=== PATIENT | male | born 1985 | race Caucasian/White ===

== ENCOUNTER 2020-06-28 02:09 | Emergency (ER) | payer SELFPAY ==
[~2020-06-28] VITALS: Ht 187.9 cm; Wt 104.3 kg
[~2020-06-28 02:09] MED LIST: ALBU17AE23; ALBU17AE23 IH; ALPR0.5T3; AZIT-21 PO; CLON1TAB2; CYCL10TA9 PO; KETO-22 PO; PRCD5U PO; SULF1TAB38 PO; TRM50T PO; TRZ100T
--- NOTE | 2020-06-28 02:37 | ED General ---
General Stated Complaint: NAUSEA,WEAK,VOMITING,SHAKING Source of Information: Patient Exam Limitations: No Limitations History of Present Illness Date Seen by Provider: Jun 28, 2020 Time Seen by Provider: 02:37 Initial Comments Patient is a 34-year-old male who presents to the emergency department today with a chief complaint of generalized weakness, nausea vomiting and diarrhea. Symptoms started around 9 PM this evening with abdominal pain. Patient states the majority of his pain is in his right lower quadrant. Patient has never had pain like this before. Patient admits to methamphetamine use IV just prior to the onset of his symptoms. No sick contacts does not recall any "bad food". No problems with urination. Patient denies any blood in his emesis or black or bloody stools. Patient states that he drove here and had pain throughout the entire drive. Patient states that he "passed out" in his truck prior to checking in this evening. Patient denies any recent illnesses, fevers chills cough congestion. He does state his throat is mildly sore. He states that he is vomited at least 5 or 6 times this evening. All other review of systems reviewed and negative except as stated. Timing/Duration: 4-6 Hours Severity: Moderate ("6-7") Associated Systoms: Nausea/Vomiting, Weakness Allergies and Home Medications Allergies Coded Allergies: Acetaminophen (Unverified Allergy, Mild, NAUSEA/VOMITING, 11/30/08) No Known Drug Allergies (Unverified , 11/30/08) Home Medications Cyclobenzaprine Hcl 10 Mg Tablet, 1 EACH PO Q8HR PRN PRN for MUSCLE SPASMS Prescribed by: COLIN CENTENO on 09/15/13 0951 Ketorolac Tromethamine 10 Mg Tablet, 10 MG PO Q8H PRN for PAIN Prescribed by: COLIN CENTENO on 09/15/13 0951 Promethazine/Codeine 5 Ml Syrp, 0 ML PO Q6H PRN 5 TO 10 ML Prescribed by: SYLVIA MINER on 11/30/08 1858 Tramadol Hcl 50 Mg Tab, 50 MG PO Q6H PRN Prescribed by: SYLVIA MINER on 06/23/09 0716 Patient Home Medication List Home Medication List Reviewed: Yes Review of Systems Review of Systems Constitutional: see HPI, malaise, weakness EENTM: throat pain Respiratory: no symptoms reported Cardiovascular: no symptoms reported Gastrointestinal: RLQ, abdominal pain, diarrhea, nausea, vomiting Genitourinary: no symptoms reported Musculoskeletal: no symptoms reported Skin: no symptoms reported Psychiatric/Neurological: Anxiety All Other Systems Reviewed Negative Unless Noted: Yes Past Shnzklt-Ajgvin-Xurswx Hx Past Medical History Asthma Anxiety Physical Exam Vital Signs Vital Signs - First Documented 06/28/20 02:35 Temp 37.6 Pulse 110 Resp 16 B/P (MAP) 104/44 (64) O2 Delivery Room Air Capillary Refill : Height, Weight, BMI Height: 6'2" Weight: 225lbs. oz. 102.898032ya; BMI Method:Stated General Appearance: WD/WN, Anxious, Moderate Distress Eyes: Bilateral Eye Normal Inspection, Bilateral Eye PERRL, Bilateral Eye EOMI HEENT: PERRL/EOMI, Pharynx Normal Neck: Normal Inspection Respiratory: Lungs Clear, Normal Breath Sounds, No Accessory Muscle Use, No Respiratory Distress Cardiovascular: Regular Rate, Rhythm Gastrointestinal: Normal Bowel Sounds, Soft, Tenderness (mild right lower quadrant tenderness with slight rebound) Extremity: Normal Capillary Refill, Normal Inspection, Normal Range of Motion, Non Tender Neurologic/Psychiatric: Alert, Oriented x3, No Motor/Sensory Deficits, Normal Mood/Affect Skin: Normal Color, Warm/Dry Progress/Results/Core Measures Suspected Sepsis SIRS Temperature: Pulse: Respiratory Rate: Laboratory Tests 06/28/20 02:58: White Blood Count 7.2 Blood Pressure / Mean: Laboratory Tests 06/28/20 02:58: Creatinine 1.21, Platelet Count 250, Total Bilirubin 2.0H Results/Orders Lab Results Laboratory Tests Test 06/28/20 02:58 06/28/20 03:45 Range/Units White Blood Count 7.2 4.3-11.0 10^3/uL Red Blood Count 4.87 4.30-5.52 10^6/uL Hemoglobin 15.3 13.3-17.7 g/dL Hematocrit 46 40-54 % Mean Corpuscular Volume 95 80-99 fL Mean Corpuscular Hemoglobin 31 25-34 pg Mean Corpuscular Hemoglobin Concent 33 32-36 g/dL Red Cell Distribution Width 13.4 10.0-14.5 % Platelet Count 250 130-400 10^3/uL Mean Platelet Volume 9.5 9.0-12.2 fL Immature Granulocyte % (Auto) 1 % Neutrophils (%) (Auto) 96 H 42-75 % Lymphocytes (%) (Auto) 3 L 12-44 % Monocytes (%) (Auto) 0 0-12 % Eosinophils (%) (Auto) 0 0-10 % Basophils (%) (Auto) 0 0-10 % Neutrophils # (Auto) 6.9 1.8-7.8 10^3/uL Lymphocytes # (Auto) 0.2 L 1.0-4.0 10^3/uL Monocytes # (Auto) 0.0 0.0-1.0 10^3/uL Eosinophils # (Auto) 0.0 0.0-0.3 10^3/uL Basophils # (Auto) 0.0 0.0-0.1 10^3/uL Immature Granulocyte # (Auto) 0.0 0.0-0.1 10^3/uL Neutrophils % (Manual) 67 % Lymphocytes % (Manual) 5 % Monocytes % (Manual) 1 % Metamyelocytes % 1 % Band Neutrophils 26 % Toxic Granulation 2+ Blood Morphology Comment NORMAL Sodium Level 138 135-145 MMOL/L Potassium Level 3.0 L 3.6-5.0 MMOL/L Chloride Level 103 98-107 MMOL/L Carbon Dioxide Level 20 L 21-32 MMOL/L Anion Gap 15 H 5-14 MMOL/L Blood Urea Nitrogen 11 7-18 MG/DL Creatinine 1.21 0.60-1.30 MG/DL Estimat Glomerular Filtration Rate > 60 BUN/Creatinine Ratio 9 Glucose Level 176 H 70-105 MG/DL Calcium Level 8.5 8.5-10.1 MG/DL Corrected Calcium 8.8 8.5-10.1 MG/DL Total Bilirubin 2.0 H 0.1-1.0 MG/DL Aspartate Amino Transf (AST/SGOT) 211 H 5-34 U/L Alanine Aminotransferase (ALT/SGPT) 104 H 0-55 U/L Alkaline Phosphatase 137 H 40-136 U/L Total Protein 6.5 6.4-8.2 GM/DL Albumin 3.6 3.2-4.5 GM/DL Lipase 30 8-78 U/L My Orders Orders - LYNDA WORRELL MD Ed Iv/Invasive Line Start (06/28/20 02:45) Cbc With Automated Diff (06/28/20 02:45) Comprehensive Metabolic Panel (06/28/20 02:45) Lipase (3/4/21 02:45) Ns Iv 1000 Ml (Sodium Chloride 0.9%) (06/28/20 02:45) Ondansetron Injection (Zofran Injectio (06/28/20 02:45) Ketorolac Injection (Toradol Injection) (06/28/20 02:45) Manual Differential (06/28/20 02:58) Hepatitis Panel Acute (06/28/20 03:39) Fentanyl Injection (Sublimaze Injection (06/28/20 04:00) Ct Abdomen/Pelvis W (06/28/20 03:53) Iohexol Injection (Omnipaque 350 Mg/Ml 1 (06/28/20 04:45) Received Contrast (Hold Metformin- Contr (06/28/20 04:45) Sodium Chloride Flush (Catheter Flush Sy (06/28/20 04:45) Ns (Ivpb) (Sodium Chloride 0.9% Ivpb Bag (06/28/20 04:45) Medications Given in ED Current Medications Medications Dose Ordered Sig/Randee Route Start Time Stop Time Status Last Admin Dose Admin Iohexol 100 ml ONCE ONCE IV 06/28/20 04:45 06/28/20 04:46 DC 06/28/20 04:42 100 ML Ketorolac Tromethamine 15 mg ONCE ONCE IVP 06/28/20 02:45 06/28/20 02:48 DC 06/28/20 02:59 15 MG Ondansetron HCl 8 mg ONCE ONCE IVP 06/28/20 02:45 06/28/20 02:48 DC 06/28/20 02:58 8 MG Sodium Chloride 10 ml NEEDED PRN IV 06/28/20 04:45 06/28/20 04:43 10 ML Sodium Chloride 100 ml ONCE ONCE IV 06/28/20 04:45 06/28/20 04:46 DC 06/28/20 04:43 80 ML Vital Signs/I&O 06/28/20 02:35 Temp 37.6 Pulse 110 Resp 16 B/P (MAP) 104/44 (64) O2 Delivery Room Air Capillary Refill : Progress Note : Time: 05:45 Progress Note Patient seen and evaluated, CBC, Chem-12 lipase shows normal CBC with mildly elevated liver functions. Patient relates that he has a history of hepatitis C. CT scan shows findings suggestive of infectious versus inflammatory enterocolitis/diarrheal disease according to stat rad. Mild pericholecystic fluid suggestive. On physical examination the patient does have very minimal right upper quadrant tenderness. Equivocal rebound. Voluntary guarding but otherwise benign exam. Patient is treated in the emergency department with normal saline and Zofran. He has no episodes of vomiting here in the emergency department. Patient will be sent home with a prescription for Zofran. He will be recommended to follow a bland diet for the next 24 hours. He is also recommended to stop using methamphetamines. He verbalizes understanding of these discharge instructions. All questions are sought and answered. Patient is stable for discharge. Departure Impression Primary Impression: Abdominal pain Qualified Codes: R10.30 - Lower abdominal pain, unspecified Disposition: HOME, SELF-CARE Condition: Stable Departure-Patient Inst. Decision time for Depature: 05:47 Referrals: [facility]/JENN RUELAS,LOCAL PHYSICIAN (PCP) Primary Care Physician Patient Instructions: Abdominal Pain, Adult ED, [id number] Add. Discharge Instructions: Follow a clear liquid diet for the next 12 hours. Then a bland diet and then advance your diet as tolerated throughout the day. Use the Zofran as needed for nausea. You can take this medication every 8 hours. I have sent a prescription to your pharmacy for this. Come back to the emergency room for any worsening abdominal pain especially with persistent vomiting/inability to hold down fluids. Follow-up with [facility] clinic as needed. Scripts Ondansetron (Ondansetron Odt) 4 Mg Tab.rapdis 4 MG PO Q8H PRN for nausea, #20 TAB Prov: LYNDA WORRELL MD 06/28/20 LYNDA WORRELL MD Jun 28, 2020 02:37
[2020-06-28] MEDS ORDERED: ONDANSETRON 4 MG/2 ML (SDV) Z0FRAN IVP ONE (02:45)
[2020-06-28] MEDS ORDERED: KETOROLAC 30 MG/ML VIAL IVP ONE (02:45)
[2020-06-28] MEDS ORDERED: NS IV 1000 ML 1,000 ML IV SCH (02:45)
[2020-06-28 03:06] LABS: BASOPHILS % (AUTO) 0 % (0-10); EOSINOPHILS % (AUTO) 0 % (0-10); HEMATOCRIT 46 % (40-54); HEMOGLOBIN 15.3 g/dL (13.3-17.7); LYMPHOCYTES # (AUTO) 0.2 10^3/uL (1.0-4.0); LYMPHOCYTES % (AUTO) 3 % (12-44); MEAN CORPUSCULAR HEMOGLOBIN 31 pg (25-34); MEAN CORPUSCULAR HGB CONC 33 g/dL (32-36); MEAN CORPUSCULAR VOLUME 95 fL (80-99); MEAN PLATELET VOLUME 9.5 fL (9.0-12.2); MONOCYTES % (AUTO) 0 % (0-12); NEUTROPHILS # (AUTO) 6.9 10^3/uL (1.8-7.8); NEUTROPHILS % (AUTO) 96 % (42-75); PLATELET COUNT 250 10^3/uL (130-400); WHITE BLOOD COUNT 7.2 10^3/uL (4.3-11.0)
[2020-06-28 03:16] LABS: ALBUMIN 3.6 GM/DL (3.2-4.5); CHLORIDE 103 MMOL/L (98-107); SODIUM 138 MMOL/L (135-145)
[2020-06-28 03:17] LABS: CALCIUM 8.5 MG/DL (8.5-10.1)
[2020-06-28 03:18] LABS: GLUCOSE 176 MG/DL (70-105)
[2020-06-28 03:19] LABS: TOTAL PROTEIN 6.5 GM/DL (6.4-8.2)
[2020-06-28 03:20] LABS: CARBON DIOXIDE 20 MMOL/L (21-32)
[2020-06-28 03:22] LABS: ALKALINE PHOSPHATASE 137 U/L (40-136); CREATININE SERUM 1.21 MG/DL (0.60-1.30); GFR ESTIMATED > 60
[2020-06-28 03:23] LABS: BUN/CREATININE RATIO 9
[2020-06-28 03:25] LABS: ALANINE AMINOTRANSFERASE 104 U/L (0-55); LIPASE 30 U/L (8-78)
[2020-06-28 03:26] LABS: BAND NEUTROPHILS 26 %; LYMPHOCYTES % (MANUAL) 5 %; METAMYELOCYTES % 1 %; MONOCYTES % (MANUAL) 1 %; NEUTROPHILS % (MANUAL) 67 %; RBC MORPH NORMAL
[2020-06-28 03:27] LABS: TOXIC GRANULATION/VACUOLAZATIO 2+
[2020-06-28] MEDS ORDERED: fentaNYL INJECTION 100 MCG/2 ML AMP IVP ONE (04:00)
[2020-06-28] MEDS ORDERED: CATHETER FLUSH 10 ML SYR IV PRN (04:45)
[2020-06-28] MEDS ORDERED: NS 100 ML (IVPB) BAG IV ONE (04:45)
[2020-06-28] MEDS ORDERED: IOHEXOL 350 MG/ML 100 ML (OMNIPAQUE 350) VIAL IV ONE (04:45)
[2020-06-28] MEDS ORDERED: HOLD METFORMIN - RECEIVED CONTRAST 20 ML VIAL IV SCH (04:45)
--- NOTE | 2020-06-28 05:39 | Diagnostic Imaging Report ---
PROCEDURE: CT abdomen and pelvis with contrast. TECHNIQUE: Multiple contiguous axial images were obtained through the abdomen and pelvis after administration of intravenous contrast. Auto Exposure Controls were utilized during the CT exam to meet ALARA standards for radiation dose reduction. All CT scans use one or more of the following dose optimizing techniques: automated exposure control, MA and/or KvP adjustment based on patient size and exam type or iterative reconstruction. INDICATION: Abdominal pain with nausea, vomiting and diarrhea. FINDINGS: Lung bases are clear. Liver appears normal. Gallbladder is unremarkable. Pancreas appears normal. Spleen is not enlarged. Adrenals appear normal. Kidneys appear normal. There is moderate amount of residue in the stomach. There is some thickening of the wall of the small intestine most notably in the jejunum. Appendix is unremarkable. There appears to be some thickening of the wall of the sigmoid colon. Urinary bladder appears normal. IMPRESSION: Inflammatory changes of the jejunum and sigmoid colon. Differential considerations include inflammatory or infectious enterocolitis. I agree with preliminary interpretation. Dictated by: Dictated on workstation # [id number]
[2020-06-28] MEDS ORDERED: ONDA4TAB11 PO (05:49)
[2020-06-28 06:03] VITALS: BP 103/60
[2020-06-28 22:10] LABS: HEPATITIS C ANTIBODY C Reactive (Non-Reactive)
== END 2020-06-28 06:03 | disposition home or self-care (01) ==
LOC: EDUNIT# 02:09 → ER 02:14
DX: R10.31 Right lower quadrant pain (principal); F41.9 Anxiety disorder, unspecified; Z88.6 Allergy status to analgesic agent
CPT/HCPCS: 36415; 74177; 80053; 80074; 83690; 85007; 85027

== ENCOUNTER 2021-04-30 14:24 | Emergency (ER) | payer OTHER ==
[~2021-04-30] VITALS: Ht 188 cm; Wt 104.3 kg
[~2021-04-30 14:24] MED LIST changes: +ONDA4TAB11 PO
--- OUTSIDE RECORDS SUMMARY | 2021-04-30 14:31 | XMS REPORT | Clinical Summary ---
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 Initiated therapy 05/26/14. Community corrections with adi [place] with [facility] Incarcerated and methadone stopped on . Pt relapsed and behind on payments for Sober Living. Not comp liant with taking mood medication. Hepatitis C infection 01/20/2014 Overview: Formatting of this note might be differ ent from the original. [facility] record s confirm Hep C: Hep C genotype Type 3A, quant [id number] - tests 05/11/2013 . LISBETH (generalized anxiety disorder) 01/20/2014 Overview: Formatting of this note might be differ ent from the original. Pt has been prescribed antidepressants but has not ever filled them. History of heroin/opiate addictin/use 01/11/2014 Overview: Formatting of this note might be differ ent from the original. Last use Summer 2013. Currently in [facility]/ sober living side with OP therapy (vlad loya), and community co rrections services - - Ian Velez [place] [phone]. Not o n Community corrections alexandra as of 12/2013 - self pay. Relapse while on treatment May 2014 (me thAmp). Relapse while on treatment 07/2014 (methAmp). 08/28/14: per chemo Chu OP. Relapse d on methamphetamine. Still resides in sober living. 11/25/14: Pt now incarcerated on violati on of probation and will be facing fci. Will stop methadone. Supporti ve treatment for withdrawal symptoms via group home nurse. Opiate addiction 01/05/2014 Overview: Formatting of this note might be differ ent from the original. 2013 Tobacco use 01/05/2014 Resolved Problems Problem Noted Date Resolved Date Encounter for monitoring Suboxone maintenance therapy 04/201306/02/2014 Overview: Formatting of this note might be differ ent from the original. suboxone induction started 01/25/14. OP therapy with vlad loya at [facility]. Community corrections ser vices with [facility] [phone]. Not on Community corrections alexandra as of 12/2013 - self pay. 05/26/14. suboxone is not affordable. Switched to methadone. Immunizations Name Administration Dates Next Due DTP ([employer] registry) 12/13/1992, 06/04/1989, , 09/25/1988 MMR 12/13/1992, 08/06/1989 OPV ([employer] registry) 12/13/1992, 06/04/1989, , 09/25/1988 Family History Medical History Relation Name Comments No Known Problems Father No Known Problems Mother Relation Name Status Comments Father Other Mother suicide (Age 39) Social History Date Tobacco Use Types Packs/Day Years Used Current Every Day Smoker Cigarettes Smokeless Tobacco: Never Used Tobacco Cessation: Ready to Quit: No; Co unseling Given: No Comments Alcohol Use Standard Drinks/Week No 0 (1 standard drink = 0.6 o z pure alcohol) Sex Assigned at Date Recorded Not on file Last Filed Vital Signs Reading Time Taken Comments Vital Sign 136/70 11/08/2014 10:12 AM CDT Blood Pressure 72 11/08/2014 10:12 AM CDT Pulse 36.7 C (98 F) 01/11/2014 10:27 AM CDT Temperature 12 11/08/2014 10:12 AM CDT Respiratory Rate - - Oxygen Saturation - - Inhaled Oxygen Concentration 98.3 kg (216 lb 11.2 oz) 11/08/2014 10:12 AM CDT Weight 190.5 cm (6' 3") 11/08/2014 10:12 AM CDT Height 27.09 11/08/2014 10:12 AM CDT Body Mass Index Plan of Treatment Health Maintenance Due Date Last Done Comments COVID-19 Vaccine (1) 08/20/1992 Varicella Vaccines (1 of 01/10/1993 2 - 2-dose childhood series) DTaP,Tdap,and Td Vaccines 08/20/1998 12/13/1992, (5 - Tdap) 06/04/1989, 12/13/1988, Additional history exists Hepatitis C Screening 08/20/2005 Influenza Vaccine (#1) 2020 Pneumo-Vaccine: 65+Yrs (1 08/20/2052 of 1 - PPSV23) IPV Vaccines Completed 12/13/1992, 06/04/1989, 12/11/1988, Additional history exists MMR Vaccines-Adult Completed 12/13/1992, 08/06/1989 HIB Vaccines Aged Out No longer eligible based on patient's age to complete this topic Meningococcal Vaccine Aged Out No longer eligib le based on patient's age to complete this topic Pneumo-Vaccine: Peds (0-5 Aged Out No longer el igible based on patient's age to Yrs) & At-Risk Patients complete this topic (6-64 Yrs) Rotavirus Vaccines Aged Out No longer eligible based on patient's age to complete this topic Results Not on filefrom Last 3 Months Insurance Type Payer Benefit Subscriber ID Effective Phone Address Plan / Dates Group COMMERCIAL INSURANCE COMMERCIAL xxxxxNSKS 2014- Attn GENERIC INSURANCE Present Pool [employer] [address] [place] [id number] Advance Directives For more information, please contact: [phone] Patient Inseamer Explanation Type Date Recorded Advance Directives and Living Will Power of Outpatient Therapist
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
[2021-04-30] MEDS ORDERED: HOLD METFORMIN - RECEIVED CONTRAST 20 ML VIAL IV SCH (15:00)
[2021-04-30] MEDS ORDERED: CATHETER FLUSH 10 ML SYR IV PRN (15:00)
[2021-04-30] MEDS ORDERED: IOHEXOL 350 MG/ML 100 ML (OMNIPAQUE 350) VIAL IV ONE (15:00)
[2021-04-30] MEDS ORDERED: NS 100 ML (IVPB) BAG IV ONE (15:00)
[2021-04-30 15:09] LABS: MEAN CORPUSCULAR HGB CONC 35 g/dL (32-36); MEAN CORPUSCULAR VOLUME 90 fL (80-99)
[2021-04-30 15:11] LABS: BASOPHILS # (AUTO) 0.1 10^3/uL (0.0-0.1); BASOPHILS % (AUTO) 0 % (0-10); EOSINOPHILS # (AUTO) 0.1 10^3/uL (0.0-0.3); EOSINOPHILS % (AUTO) 0 % (0-10); HEMATOCRIT 52 % (40-54); HEMOGLOBIN 18.2 g/dL (13.3-17.7); LYMPHOCYTES # (AUTO) 1.3 10^3/uL (1.0-4.0); LYMPHOCYTES % (AUTO) 7 % (12-44); MEAN CORPUSCULAR HEMOGLOBIN 32 pg (25-34); MEAN PLATELET VOLUME 10.3 fL (9.0-12.2); MONOCYTES # (AUTO) 1.1 10^3/uL (0.0-1.0); MONOCYTES % (AUTO) 6 % (0-12); NEUTROPHILS # (AUTO) 17.6 10^3/uL (1.8-7.8); NEUTROPHILS % (AUTO) 87 % (42-75); PLATELET COUNT 270 10^3/uL (130-400); WHITE BLOOD COUNT 20.2 10^3/uL (4.3-11.0)
[2021-04-30 15:27] LABS: ALBUMIN 4.3 GM/DL (3.2-4.5); POTASSIUM 3.8 MMOL/L (3.6-5.0)
[2021-04-30 15:28] LABS: CALCIUM 9.4 MG/DL (8.5-10.1)
[2021-04-30 15:30] LABS: TOTAL PROTEIN 8.3 GM/DL (6.4-8.2)
[2021-04-30 15:31] LABS: BILIRUBIN,TOTAL 0.7 MG/DL (0.1-1.0)
[2021-04-30 15:33] LABS: CREATININE SERUM 0.96 MG/DL (0.60-1.30)
[2021-04-30] MEDS ORDERED: LACTATED RINGERS 1,000 ML IV SCH (15:45)
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
[2021-04-30 16:12] LABS: BAND NEUTROPHILS 1 %; LYMPHOCYTES % (MANUAL) 7 %; MONOCYTES % (MANUAL) 7 %; NEUTROPHILS % (MANUAL) 85 %; RBC MORPH NORMAL
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
[2021-04-30] MEDS ORDERED: CEPH500T PO ×3 (16:30→16:33)
[2021-04-30 16:45] VITALS: BP 137/86
== END 2021-04-30 16:45 | disposition home or self-care (01) ==
LOC: EDUNIT# 14:24 → ER 14:27
DX: S00.432A Contusion of left ear, initial encounter (principal); S60.221A Contusion of right hand, initial encounter; J45.909 Unspecified asthma, uncomplicated; F41.9 Anxiety disorder, unspecified; Z79.899 Other long term (current) drug therapy; Y04.8XXA Assault by other bodily force, initial encounter
CPT/HCPCS: 36415; 70450; 70486; 71260; 72125; 73130; 74177; 80053; 85007; 85027

== ENCOUNTER 2022-08-27 19:45 | Emergency (ER) | payer SELFPAY ==
[~2022-08-27] VITALS: Ht 188 cm; Wt 113.3 kg
[~2022-08-27 19:45] MED LIST changes: +CEPH500T PO
[2022-08-27 19:59] VITALS: BP 130/96
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
== END 2022-08-27 21:03 | disposition home or self-care (01) ==
LOC: EDUNIT# 19:45 → ER 19:49
DX: R20.2 Paresthesia of skin (principal); Z28.310 Unvaccinated for COVID-19
CPT/HCPCS: 99282

== ENCOUNTER 2023-02-02 07:41 | Emergency (ER) | payer SELFPAY ==
[2023-02-02] MEDS ORDERED: NS IV 1000 ML 1,000 ML IV SCH (08:00)
[2023-02-02] MEDS ORDERED: ONDANSETRON INJECTION 4 MG/2 ML (SDV) IVP ONE (08:00)
--- NOTE | 2023-02-02 08:02 | ED Abdominal Pain ---
General Chief Complaint: Abdominal/GI Problems Stated Complaint: ABD PAIN Nursing Triage Note: .PT ARRIVED PER EMS, PT CO FROM HOME W CO OF SEVERE ABD PAIN STARTING THIS AM AT APPROX 0530 THIS AM. PT STATES ABD PAIN AND BACK PAIN MORE ON R SIDE. PT UNABLE TO LAY STILL SQUIRMING IN BED TO GET COMFORTABLE. PT CO OF NAUSEA Source of Information: Patient (DEBRASHRUTHI) History of Present Illness Date Seen by Provider: Feb 02, 2023 Time Seen by Provider: 07:50 Initial Comments Patient presents with abdominal pain since this morning. He says that he has not been feeling good for a little while but it got much worse this morning. He states that pain is in his epigastric area and is radiating to his back currently. He denies any ememis or diarrhea. States that he has had nausea with it. He had GI issues last year that he presented to the ED with. Timing/Duration: 1-3 Hours Severity/Quality: Mild Location: Epigastric Radiation: Back Activities at Onset: Rest Associated Symptoms: Back Pain; No Diaphoresis; Nausea/Vomiting; No Shortness of Air (SHRUTHI RICHARDSON) Allergies and Home Medications Allergies Coded Allergies: No Known Drug Allergies (Unverified , 11/30/08) Patient Home Medication List Home Medication List Reviewed: Yes (SHRUTHI RICHARDSON) No Active Prescriptions or Reported Meds Review of Systems Review of Systems Constitutional: no symptoms reported, see HPI EENTM: No Symptoms Reported Respiratory: No Symptoms Reported; Denies Cough, Denies Shortness of Air Cardiovascular: Denies Chest Pain Gastrointestinal: Abdomen Distended, Abdominal Pain; Denies Diarrhea; Nausea; Denies Rectal Bleeding, Denies Vomiting (SHRUTHI RICHARDSON) All Other Systems Reviewed Negative Unless Noted: Yes (SHRUTHI RICHARDSON) Past Vmmvzxs-Xjeygk-Tdsivy Hx Immunizations Up To Date First/Initial COVID19 Vaccinat: NA (SHRUTHI RICHARDSON) Past Medical History Surgery/Hospitalization HX: DENIES Surgeries: Yes (elbow) Orthopedic Respiratory: Yes Asthma Cardiac: No Neurological: No Gastrointestinal: No Psychosocial: Yes Anxiety Integumentary: No Blood Disorders: Yes (Hep C) (SHRUTHI RICHARDSON) Physical Exam Vital Signs Vital Signs - First Documented 02/02/23 07:43 Pulse 59 Resp 18 B/P (MAP) 143/107 (119) Pulse Ox 99 (DETAR,CYNDY W DO) Vital Signs Capillary Refill : (SHRUTHI RICHARDSON) Height/Weight/BMI Height: 6'2" Weight: 225lbs. oz. 102.016904tt; 32.00 BMI Method:Stated General Appearance: WD/WN, no apparent distress Neck: supple Respiratory: lungs clear, normal breath sounds, no respiratory distress, no accessory muscle use Cardiovascular: regular rate, rhythm, no gallop, no murmur Gastrointestinal: soft, tenderness (epigastric) Back: no CVA tenderness Neurologic/Psychiatric: alert, normal mood/affect, oriented x 3 (SHRUTHI RICHARDSON) Progress/Results/Core Measures Results/Orders Lab Results Laboratory Tests Test 02/02/23 07:54 02/02/23 07:59 Range/Units White Blood Count 11.1 H 4.3-11.0 10^3/uL Red Blood Count 5.30 4.30-5.52 10^6/uL Hemoglobin 17.0 13.3-17.7 g/dL Hematocrit 49 40-54 % Mean Corpuscular Volume 92 80-99 fL Mean Corpuscular Hemoglobin 32 25-34 pg Mean Corpuscular Hemoglobin Concent 35 32-36 g/dL Red Cell Distribution Width 12.4 10.0-14.5 % Platelet Count 266 130-400 10^3/uL Mean Platelet Volume 9.2 9.0-12.2 fL Immature Granulocyte % (Auto) 0 % Neutrophils (%) (Auto) 81 H 42-75 % Lymphocytes (%) (Auto) 13 12-44 % Monocytes (%) (Auto) 5 0-12 % Eosinophils (%) (Auto) 1 0-10 % Basophils (%) (Auto) 0 0-10 % Neutrophils # (Auto) 9.1 H 1.8-7.8 10^3/uL Lymphocytes # (Auto) 1.4 1.0-4.0 10^3/uL Monocytes # (Auto) 0.5 0.0-1.0 10^3/uL Eosinophils # (Auto) 0.1 0.0-0.3 10^3/uL Basophils # (Auto) 0.0 0.0-0.1 10^3/uL Immature Granulocyte # (Auto) 0.0 0.0-0.1 10^3/uL Sodium Level 140 135-145 MMOL/L Potassium Level 3.2 L 3.6-5.0 MMOL/L Chloride Level 105 98-107 MMOL/L Carbon Dioxide Level 22 21-32 MMOL/L Anion Gap 13 5-14 MMOL/L Blood Urea Nitrogen 7 7-18 MG/DL Creatinine 0.81 0.60-1.30 MG/DL Estimat Glomerular Filtration Rate 118 BUN/Creatinine Ratio 9 Glucose Level 129 H 70-105 MG/DL Calcium Level 9.1 8.5-10.1 MG/DL Corrected Calcium 8.9 8.5-10.1 MG/DL Total Bilirubin 0.7 0.1-1.0 MG/DL Aspartate Amino Transf (AST/SGOT) 21 5-34 U/L Alanine Aminotransferase (ALT/SGPT) 28 0-55 U/L Alkaline Phosphatase 73 40-136 U/L Total Protein 7.6 6.4-8.2 GM/DL Albumin 4.3 3.2-4.5 GM/DL Lipase 59 8-78 U/L Serum Alcohol < 10 <10 MG/DL Urine Color YELLOW Urine Clarity CLEAR Urine pH 5.5 5-9 Urine Specific [place] >=1.030 1.016-1.022 Urine Protein 1+ H NEGATIVE Urine Glucose (UA) NEGATIVE NEGATIVE Urine Ketones 3+ H NEGATIVE Urine Nitrite NEGATIVE NEGATIVE Urine Bilirubin 1+ H NEGATIVE Urine Urobilinogen 0.2 < = 1.0 MG/DL Urine Leukocyte Esterase NEGATIVE NEGATIVE Urine RBC (Auto) 1+ H NEGATIVE Urine RBC 2-5 H /HPF Urine WBC 0-2 /HPF Urine Squamous Epithelial Cells NONE /HPF Urine Crystals NONE /LPF Urine Bacteria TRACE /HPF Urine Casts NONE /LPF Urine Mucus SMALL H /LPF Urine Other MOD SPERM H /HPF Urine Culture Indicated YES Urine Opiates Screen NEGATIVE NEGATIVE Urine Oxycodone Screen NEGATIVE NEGATIVE Urine Methadone Screen NEGATIVE NEGATIVE Urine Propoxyphene Screen NEGATIVE NEGATIVE Urine Barbiturates Screen NEGATIVE NEGATIVE Ur Tricyclic Antidepressants Screen NEGATIVE NEGATIVE Urine Phencyclidine Screen NEGATIVE NEGATIVE Urine Amphetamines Screen NEGATIVE NEGATIVE Urine Methamphetamines Screen NEGATIVE NEGATIVE Urine Benzodiazepines Screen NEGATIVE NEGATIVE Urine Cocaine Screen NEGATIVE NEGATIVE Urine Cannabinoids Screen POSITIVE H NEGATIVE (DETAR,CYNDY W DO) My Orders Orders - DETAR,CYNDY W DO Comprehensive Metabolic Panel (02/02/23 07:56) Lipase (02/02/23 07:56) Ua Culture If Indicated (02/02/23 07:56) Cbc And Automated Diff (02/02/23 07:56) Ct Abdomen/Pelvis W (02/02/23 07:56) Ns Iv 1000 Ml (Ns Iv 1000 Ml) (02/02/23 08:00) Ondansetron Injection (Ondansetron Inj (02/02/23 08:00) Urine Culture (02/02/23 07:59) Iohexol Injection (Omnipaque 350 Mg/Ml 1 (02/02/23 08:45) Received Contrast (Hold Metformin- Contr (02/02/23 08:45) Ns (Ivpb) 100 Ml (Sodium Chloride 0.9% 1 (02/02/23 08:45) Alcohol (02/02/23 09:01) Drug Screen Stat (Urine) (02/02/23 09:03) Pantoprazole Injection (Pantoprazole Inj (02/02/23 09:15) Antacid Suspension (Antacid Suspension (02/02/23 09:15) (CYNDY MORALES DO) Medications Given in ED Current Medications Medications Dose Ordered Sig/Randee Route Start Time Stop Time Status Last Admin Dose Admin Iohexol 100 ml ONCE ONCE IV 02/02/23 08:45 02/02/23 08:46 DC 02/02/23 09:21 100 ML Ondansetron HCl 4 mg ONCE ONCE IVP 02/02/23 08:00 02/02/23 08:01 DC 02/02/23 08:14 4 MG Sodium Chloride 100 ml ONCE ONCE IV 02/02/23 08:45 02/02/23 08:46 DC 02/02/23 09:21 80 ML (CYNDY MORALES DO) Vital Signs/I&O 02/02/23 07:43 Pulse 59 Resp 18 B/P (MAP) 143/107 (119) Pulse Ox 99 (CYNDY MORALES DO) Blood Pressure Mean: 119 Progress Progress Note : Time: 07:50 Progress Note 7:50 - patients pains started at 5:30 this morning with epigastric pain that radiates to his back. He occasionally smoke marijuana and consumes alcohol. He says that he is currently not homeless but is not living in a great situation. He states that he is having some nausea but denies fevers, emesis, diarrhea, hematochezia. His blood pressure is currently 143/107. Plan is to abdominal CT abdomen, CBC, CMP, Lipase, and UA. 8:25 - patients grandfather has presented to the ED. On arrival his grandfather believes that his consumption of alcohol is different than what the patient had described earlier in the visit. 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 (SHRUTHI RICHARDSON) Progress Note : Progress Note 0958 Labs reviewed. Urine indicates some dehydration, drug test positive for marijuana. Alcohol less than 10. Suspect alcoholic gastritis. Protonix and Maalox given in the department. We will treat him with PPI outpatient as well. Will provide nausea medication. Follow-up with primary care for chronic recurrent problems. He does have support from his grandparent who does residential him despite patient's inability to adequately care for himself and make good decisions with lifestyle choices. Patient sleeping in the bed he does not entirely pleased with going home without pain medication, will provide Protonix and sucralfate for symptom control follow-up with primary care (CYNDY MORALES DO) Departure Impression Primary Impression: Abdominal pain Qualified Codes: R10.13 - Epigastric pain Disposition: HOME, SELF-CARE Condition: Stable Departure-Patient Inst. Referrals: NO,LOCAL PHYSICIAN (PCP/Family) Primary Care Physician Patient Instructions: Gastritis (DC) Scripts Sucralfate (Sucralfate) 1 Gram Tablet 1 GM PO ACHS for Abdominal Pain for 14 Days, #56 TAB 1 Refill Chew tablet to a slurry and then swallow Prov: CYNDY MORALES DO 02/02/23 Ondansetron (Ondansetron Odt) 4 Mg Tab.rapdis 4 MG PO Q6H PRN for NAUSEA/VOMITING, #8 TAB 0 Refills Prov: CYNDY MORALES DO 02/02/23 SHRUTHI RICHARDSON Feb 02, 2023 08:02 CYNDY MORALES DO Feb 02, 2023 09:38
[2023-02-02 08:05] LABS: BASOPHILS % (AUTO) 0 % (0-10); EOSINOPHILS # (AUTO) 0.1 10^3/uL (0.0-0.3); EOSINOPHILS % (AUTO) 1 % (0-10); HEMATOCRIT 49 % (40-54); LYMPHOCYTES # (AUTO) 1.4 10^3/uL (1.0-4.0); LYMPHOCYTES % (AUTO) 13 % (12-44); MEAN CORPUSCULAR HEMOGLOBIN 32 pg (25-34); MEAN CORPUSCULAR HGB CONC 35 g/dL (32-36); MEAN CORPUSCULAR VOLUME 92 fL (80-99); MEAN PLATELET VOLUME 9.2 fL (9.0-12.2); MONOCYTES # (AUTO) 0.5 10^3/uL (0.0-1.0); MONOCYTES % (AUTO) 5 % (0-12); NEUTROPHILS # (AUTO) 9.1 10^3/uL (1.8-7.8); NEUTROPHILS % (AUTO) 81 % (42-75); PLATELET COUNT 266 10^3/uL (130-400); WHITE BLOOD COUNT 11.1 10^3/uL (4.3-11.0)
[2023-02-02 08:13] LABS: ALBUMIN 4.3 GM/DL (3.2-4.5)
[2023-02-02 08:14] LABS: POTASSIUM 3.2 MMOL/L (3.6-5.0)
[2023-02-02 08:15] LABS: CALCIUM 9.1 MG/DL (8.5-10.1)
[2023-02-02 08:16] LABS: TOTAL PROTEIN 7.6 GM/DL (6.4-8.2)
[2023-02-02 08:18] LABS: BILIRUBIN,TOTAL 0.7 MG/DL (0.1-1.0)
[2023-02-02 08:20] LABS: CREATININE SERUM 0.81 MG/DL (0.60-1.30)
[2023-02-02 08:21] LABS: CLARITY,URINE CLEAR; COLOR,URINE YELLOW
[2023-02-02 08:22] LABS: BILIRUBIN,URINE 1+ (NEGATIVE); GLUCOSE, URINE (UA) NEGATIVE (NEGATIVE); KETONES,URINE 3+ (NEGATIVE); LEUKOCYTE ESTERASE ,URINE NEGATIVE (NEGATIVE); NITRITE,URINE NEGATIVE (NEGATIVE); PH,URINE 5.5 (5-9); PROTEIN,URINE 1+ (NEGATIVE)
[2023-02-02 08:23] LABS: BACTERIA,URINE TRACE /HPF; WBC,URINE 0-2 /HPF
[2023-02-02 08:25] LABS: URINE OTHER MOD SPERM /HPF
[2023-02-02] MEDS ORDERED: IOHEXOL 350 MG/ML 100 ML (OMNIPAQUE 350) VIAL IV ONE (08:45)
[2023-02-02] MEDS ORDERED: NS 100 ML (IVPB) BAG IV ONE (08:45)
[2023-02-02] MEDS ORDERED: HOLD METFORMIN - RECEIVED CONTRAST 20 ML VIAL IV SCH (08:45)
--- NOTE | 2023-02-02 09:07 | Diagnostic Imaging Report ---
PROCEDURE: CT abdomen and pelvis with contrast. TECHNIQUE: Multiple contiguous axial images were obtained through the abdomen and pelvis after administration of intravenous contrast. Auto Exposure Controls were utilized during the CT exam to meet ALARA standards for radiation dose reduction. All CT scans use one or more of the following dose optimizing techniques: automated exposure control, MA and/or KvP adjustment based on patient size and exam type or iterative reconstruction. INDICATION: Abdominal pain, severe, which radiates into the back with nausea and emesis. COMPARISON: 04/30/2021 There is no focal hepatic or splenic abnormality. Gallbladder is distended and likely contains lucent stone in the gallbladder neck. No pancreatic inflammation is seen. There is no evidence of adrenal gland or splenic abnormality. Kidneys are unremarkable. There is no free fluid in the abdomen or pelvis. No pathologically enlarged adenopathy is seen. There is no evidence of focal inflammation or organized fluid collection. Unopacified bladder is unremarkable in appearance. IMPRESSION: Cholelithiasis without secondary sign of acute cholecystitis. Otherwise, no acute abnormality seen within the abdomen or pelvis. Dictated by: Dictated on workstation # [id number]
[2023-02-02] MEDS ORDERED: ANTACID SUSPENSION 30 ML UDC PO ONE (09:15)
[2023-02-02] MEDS ORDERED: PANTOPRAZOLE INJECTION 40 MG VIAL IV ONE (09:15)
[2023-02-02 09:20] LABS: AMPHETAMINE SCREEN, URINE NEGATIVE (NEGATIVE); BARBITURATE SCREEN URINE NEGATIVE (NEGATIVE); CANNABINOID SCREEN, URINE POSITIVE (NEGATIVE); COCAINE SCREEN URINE NEGATIVE (NEGATIVE); METHADONE STAT NEGATIVE (NEGATIVE); OPIATE SCREEN URINE NEGATIVE (NEGATIVE); OXYCODONE STAT NEGATIVE (NEGATIVE); PROPOXYPHENE STAT NEGATIVE (NEGATIVE); TRICYCLIC ANTIDEPRESSANTS SCRE NEGATIVE (NEGATIVE)
[2023-02-02] MEDS ORDERED: SUCR1TAB PO (09:37)
[2023-02-02] MEDS ORDERED: ONDA4TAB11 PO (09:37)
[2023-02-02 09:58] VITALS: BP 122/80
== END 2023-02-02 09:58 | disposition home or self-care (01) ==
LOC: EDUNIT# 07:41 → ER 07:42
DX: R10.13 Epigastric pain (principal); R11.2 Nausea with vomiting, unspecified
CPT/HCPCS: 74177; 80053; 80306; 81000; 83690; 85025; 87088; 99284; G0480; 36415; 80320